=== PATIENT | male | born 1960 ===

== ENCOUNTER → 2025-05-10 | Outpatient (CLI) | payer OTHER ==
[2025-05-11 21:17] LABS: COTININE, URN, SCREEN Negative
== END ==
LOC: LAB SHORT 11:50 → LAB 11:50
PROVIDERS: Orthopaedic Surgery
DX: Z87.891 Personal history of nicotine dependence (principal)

== ENCOUNTER 2025-06-17 05:58 | Day surgery (SDC) | payer OTHER ==
[2025-06-17] VITALS (12 sets, daily range): BP systolic 88–167; BP diastolic 44–97
[~2025-06-17] VITALS: Ht 175.3 cm; Wt 116.1 kg
[~2025-06-17 05:58] MED LIST: Norco 5-325 Ta1 EACH PO
[2025-06-17] MEDS ORDERED: CeFAZolin Sodium 2,000 MG in NS 100 ML IV SCH ×2 (06:15→16:00)
[2025-06-17] MEDS ORDERED: Tranexamic Acid 100 ML IV SCH (06:15)
[2025-06-17] MEDS ORDERED: Ropivacaine 0.5% HCl/Pf 123.125 MG,EPINEPHrine HCL 0.25 MG,Ketorolac Tromethamine 15 MG... INFIL SCH (06:15)
[2025-06-17] MEDS ORDERED: Chlorhexidine Mouth Care 15 ML UDC MT SCH (06:15)
[2025-06-17] MEDS ORDERED: CeFAZolin Sodium 2,000 MG VIAL ONE (07:01)
[2025-06-17] MEDS ORDERED: Albuterol 2.5 MG/3 ML VIAL INH ONE (07:10)
[2025-06-17] MEDS ORDERED: Bupivacaine 0.75%/Dext 8.25% 2 ML Amp IT ONE (07:15)
[2025-06-17] MEDS ORDERED: Midazolam HCl 1MG / ML 2ML Vial ONE ×2 (07:17→08:33)
[2025-06-17] MEDS ORDERED: FentaNYL Citrate 50 MCG/ML 2 ML Injection ONE (07:17)
[2025-06-17] MEDS ORDERED: Magnesium Hydroxide Conc 10 ML UDC PO PRN (07:55)
[2025-06-17] MEDS ORDERED: HYDROmorphone HCl/Pf 1MG SYR IV PRN ×3 (08:00→08:50)
[2025-06-17] MEDS ORDERED: Ondansetron HCl 2 MG / ML 2ML Vial ONE (08:04)
[2025-06-17] MEDS ORDERED: Phenylephrine HCl 100 MCG/ML-NS 10MLSYR (1MG/10ML) ONE ×2 (08:04→09:33)
[2025-06-17] MEDS ORDERED: Dexamethasone Sod Phos 10 MG/ML 1ML VIAL ONE (08:04)
[2025-06-17] MEDS ORDERED: Metoclopramide HCl 5MG / ML 2ML Vial IV PRN (08:05)
[2025-06-17] MEDS ORDERED: Ondansetron HCl 2 MG / ML 2ML Vial IV PRN ×2 (08:05→08:45)
[2025-06-17] MEDS ORDERED: Labetalol HCL 5 MG/ML 4ML Injection (Single Dose) IV PRN (08:45)
[2025-06-17] MEDS ORDERED: FentaNYL Citrate 50 MCG/ML 2 ML Injection IV PRN ×2 (08:50)
--- NOTE | 2025-06-17 10:21 | NUR ---
PT TO ROOM 222 VIA BED FROM PACU. R KNEE DRESSING/LAURA WRAP CDI. PT ABLE TO WIGGLE TOES DISTALLY. UNABLE TO LIFT LEG OFF BED AT THIS POINT. PT ORIENTED TO ROOM. WATER/SNACKS PROVIDED. PT DENIES PAIN AT THSI POINT. WILL CONTINUE TO MONITOR. POST OP VS STARTED AND STABLE.
[2025-06-17] MEDS ORDERED: Ketorolac Tromethamine 15mg Vial IV SCH (12:00)
--- NOTE | 2025-06-17 13:39 | NUR ---
PT WITH NEAR SYNCOPE, ELEVATED HR 125 AFTER ATTEMPTING PT. PT PRESENTLY ON 6LSIMPLE MASK PER PT. PT BACK IN BED. NEW ONSET URI SYMPTOMS. PT ADMITS TO BEING AROUND SICK RELATIVE PRIOR TO SURGERY. WILL CONTINUE TO MONITOR
--- NOTE | 2025-06-17 15:16 | NUR ---
02 DECREASED TO 3LNC. SPO2 STABLE. HR DECREASED TO 110BPM. PT ADMITS TO FEELING BETTER. WILL CONTINUE TO MONITOR.
[2025-06-17] MEDS ORDERED: FLU VACC TS2025-26(6MOS UP)/PF 45 MCG/0.5 ML SYRINGE IM SCH (16:00)
--- NOTE | 2025-06-17 16:55 | NUR ---
SHIFT SUMMARY PT WITH SYNCOPE WHILE WORKING WITH PT. HR ELEVATED TO 140 BPM. BP STABLE. AFEBRILE. PT DIAPHORETIC AND DESATURATED TO SPO2 OF 79. 6L SIMPLE MASK AND PT PUT BACK IN BED DURING THIS EVENT. RT IN ROOM TO ASSESS AND TREAT. AT THIS POINT, PT IS ON 3LNC AND HR IS IN THE 110 BPM RANGE. MD NOTIFIED OF THIS VIA TELEPHONE. LR RESTARTED AT 70CC. WILL CONTINUE TO MONITOR.
[2025-06-18 04:16] VITALS: BP 134/90
[2025-06-18 04:39] LABS: BASOPHILS ABSOLUTE AUTO 0.01 K/mm3 (0.00-0.23); BASOPHILS PERCENT AUTO 0 % (0-2); EOSINOPHILS ABSOLUTE AUTO 0.00 K/mm3 (0.00-0.68); EOSINOPHILS PERCENT AUTO 0 % (0-6); Hematocrit 38.9 % (37.0-53.0); Hemoglobin 12.5 g/dL (13.5-17.5); IMMATURE GRAN ABSOLUTE AUTO 0.03 K/mm3 (0.00-0.10); IMMATURE GRAN PERCENT AUTO 0 % (0-1); LYMPHOCYTES ABSOLUTE AUTO 1.35 K/mm3 (0.84-5.20); LYMPHOCYTES PERCENT AUTO 13 % (21-46); MONOCYTES ABSOLUTE AUTO 1.34 K/mm3 (0.16-1.47); MONOCYTES PERCENT AUTO 13 % (4-13); Mean Corpuscular HGB Conc 32.1 g/dL (31.5-36.5); Mean Corpuscular Volume 94 fL (80-100); NEUTROPHILS ABSOLUTE AUTO 7.43 K/mm3 (1.96-9.15); NEUTROPHILS PERCENT AUTO 73 % (41-73); NRBC ABSOLUTE 0.00 K/mm3 (0.00-0.02); NRBC Auto 0.0 /100 WBC (0.0-0.2); Platelet Count 198 K/mm3 (150-400); RDW Coefficient Variation 15.5 % (11.7-14.2); RDW Standard Deviation 53.2 fL (35.1-46.3)
[2025-06-18 05:00] LABS: Anion Gap 6.0 mmol/L (3-11); Blood Urea Nitrogen 20.0 mg/dL (8-24); CO2, Blood 29.0 mmol/L (21-32); Calcium, Blood 8.6 mg/dL (8.5-10.1); Chloride, Blood 105.0 mmol/L (98-108); Creatinine, Blood 1.06 mg/dL (0.60-1.20); Glucose, Blood 121.0 mg/dL (70-99); Potassium, Blood 4.5 mmol/L (3.5-5.5); Sodium, Blood 135.0 mmol/L (136-145)
--- NOTE | 2025-06-18 05:01 | NUR ---
ALTERNATIVE ENERGY ENGINEER SUMMARY PT IS POD 0 FOR R TKA. PT HAS BEEN UP AND AMBULATED IN ROOM AND DID VERY WELL. PT DENIES DIZZINESS WHEN GETTING UP AND AMBULATED WELL. DUE TO PT'S NEAR SYNCOPAL EPISODE ON DAY SHIFT WHILE WORKING WITH PHYSICAL THERAPY, PT HAS REFUSED SCHEDULED TORADOL. PT THOUGHT THAT BECAUSE HE RECIEVED THE TORADOL NOT LONG BEFORE THE EPISODE THAT IT MAY HAVE BEEN THE CAUSE AND WANTED TO AVOID IT JUST IN CASE. PAIN HAS BEEN WELL CONTROLLED WITH SCHEDULED TYLENOL AND PRN OXYCODONE 1 TAB. PT HAS USED THE URINAL INDEPENDENTLY. VSS, WCTM.
[2025-06-18 07:25] VITALS: BP 125/76
[2025-06-18] MEDS ORDERED: ASPI81CH PO (07:46)
--- NOTE | 2025-06-18 09:29 | NUR ---
DISCHARGE SUMMARY POD1 R TKA, A/OX4, VSS, TOLERATING PO, AMBULATING WELL, VOIDING INDEPENDENTLY, PAIN WELL MANAGED, SURGICAL DRESSING C/D/I. DISCUSSED DC INSTRUCTIONS INCLUDING HOME CARE, MEDICATIONS, AND FOLLOW UPS. NO QUESTIONS LEFT UNANSWERED. ESCORTED OUT VIA WC TO PRIVATE AUT[employer] TO GO HOME WITH HIS SON.
== END 2025-06-18 08:50 | disposition home or self-care (01) ==
LOC: ORSCMMR 05:58 → SURS 05:58 → ORSCMMR 05:59 → ORD 07:30 → SURS 10:15 → ORSCMMR 06-18 08:50
PROVIDERS: Orthopaedic Surgery
PROC: 0SRC0JA Replacement of Right Knee Joint with Synthetic Substitute, Uncemented, Open Approach (ICD-10-PCS; principal; 2025-06-17 07:30)
DX: M17.11 Unilateral primary osteoarthritis, right knee (principal); Z87.891 Personal history of nicotine dependence; E66.9 Obesity, unspecified; Z68.32 Body mass index [BMI] 32.0-32.9, adult
CPT/HCPCS: 36415; 73560-RT; 80048; 85025; 94760; A9270; C1713; C1776; J0166; J0690; J0735; J1100; J1885; J2250; J2371; J2405; J2704; J2795; J3010; J7120